=== PATIENT | male | born 1985 | race Caucasian/White ===

== ENCOUNTER 2022-08-06 13:45 | Outpatient (CLI) | payer OTHER, SELFPAY ==
[2022-08-06 21:43] LABS: Cholesterol* 165 mg/dL (90-199); HDL Cholesterol* 51 mg/dL (>=40); LDL Cholesterol Calculated 100 mg/dL (<100); Triglycerides* 69 mg/dL (40-149)
== END 2022-08-06 13:46 | disposition home or self-care (01) ==
LOC: LKVREF 13:46
PROVIDERS: PCP Family Medicine; Visit Provider Family Medicine
DX: Z00.00 Encounter for general adult medical examination without abnormal findings (principal); F90.9 Attention-deficit hyperactivity disorder, unspecified type; Z13.6 Encounter for screening for cardiovascular disorders
CPT/HCPCS: 80061

== ENCOUNTER 2025-01-11 08:30 | Outpatient (CLI) | payer OTHER, SELFPAY | END 2025-01-11 08:31 | disposition home or self-care (01) | LOC: NFLDREF 01-13 11:42 | PROVIDERS: PCP Family Medicine; Referring Provider Family Medicine; Visit Provider Family Medicine | DX: Z00.00 Encounter for general adult medical examination without abnormal findings (principal); Z13.228 Encounter for screening for other metabolic disorders; Z13.6 Encounter for screening for cardiovascular disorders | CPT/HCPCS: 80048; 80061 ==